=== PATIENT | female | born 1990 | race Caucasian/White ===

== ENCOUNTER 2022-09-14 14:29 | Emergency (ER) | payer BC ==
[~2022-09-14] VITALS: Ht 160 cm; Wt 53.5 kg
[2022-09-14] MEDS ORDERED: DIPHTH/TETANUS/ACEL. PERTUSSIS 0.5 ML SYR IM ONE (16:00)
[2022-09-14] MEDS ORDERED: TETANUS/DIPHTHERIA TOX ADULT 0.5 ML SYR ONE (16:13)
[2022-09-14] MEDS ORDERED: BACITRACIN15 GM TOP (16:48)
== END 2022-09-14 17:18 | disposition home or self-care (01) ==
LOC: ER 15:29
DX: S60.411A Abrasion of left index finger, initial encounter (principal)
CPT/HCPCS: 90714; 99283